=== PATIENT | female | born 1930 | race Caucasian/White ===

== ENCOUNTER 2017-05-31 15:39 | Observation (INO) | payer MEDICARE ==
[~2017-05-31] VITALS: Ht 148.6 cm; Wt 76.3 kg
[~2017-05-31 15:39] MED LIST: ACET500C6 PO; ASCOCRY2 PO; ASPI1TAB83 PO; CARV25TA2 PO; CRS/10 PO; CYAN1CAP3 PO; FERR325T5 PO; FOLITAB5 PO; FRS/40 PO; GABA-113 PO; GLIM4TAB2 PO; ISOS40TA12 PO; LACT3000; LEVO88TA3 PO; LISI40TA PO; LOPELIQ6; MAGN400T24 PO; METF500T PO; NITR0.4S UT; OMEGCAP2 PO; PANT1TAB48 PO; POTA-331 PO; SALS500T10 PO; SITA50TA PO; TRAM-10 PO; [UNRECOGNIZED DRUG - CODE] PO
[2017-05-31] MEDS ORDERED: ONDANSETRON INJ 2 MG/ML 2 ML VIAL IV STA (15:51)
[2017-05-31] MEDS ORDERED: NITROGLYCERIN 0.4 MG SL PER TAB CHARGE SL PRN ×2 (16:00→18:45)
--- NOTE | 2017-05-31 16:17 | EMERGENCY ROOM VISIT NOTE ---
History Report prepared by Harjinder: Rodrick Peters Under the Supervision of: Dr. Dandy Aleman M.D. First contact with patient: 15:42 Stated Complaint: CHEST DISCOMFORT History of Present Illness The patient is an 86 year old white female with a past medical history of DM, A- Fib, Arthritis, HTN who presents to the ED with a cc of constant, central chest pressure beginning 2.5 hours ago. The patient was given three shots of Novocain for a root canal. She did not have symptoms before this. Positive symptom relief with nitro and aspirin. Negative radiating pain, nausea, vomiting, history of smoking, drug use, alcohol use, history of OR, recent travel, abx use , abdominal pain, history of blood clots. The patient follows up with a physician in [place]. She is currently on pills and insulin for her DM, amiodarone, and Eliquis. Source of History: patient Onset: 2.5 hours ago Position: chest Quality: pressure Timing: constant Modifying Factors (Relieving): other (apirin and nitro) Associated Symptoms: No nausea, No vomiting, No abdominal pain Note: Denies: radiating pain, history of smoking, drug use, alcohol use, history of OR , recent travel, abx use Review of Systems See HPI for pertinent positives and negatives. A total of ten systems were reviewed and were otherwise negative. Past Medical & Surgical Medical Problems: (1) A-fib (2) Arthritis (3) Chest pain (4) Diabetes (5) HTN (hypertension) Family History Patient reports no known family medical history. Social History Smoking Status: Never Smoker Alcohol Use: none Drug Use: none Occupation Status: retired Current/Historical Medications Scheduled Acetaminophen (Tylenol), 1,000 MG PO HS Amiodarone Hcl (Cordarone), 100 MG PO DAILY Apixaban (Eliquis), 2.5 MG PO BID Ascorbic Acid (Vitamin C), 1 TAB PO BID Aspirin (Aspirin Chewable), 81 MG PO HS Cholecalciferol (Vitamin D3), 1 TAB PO DAILY Cyanocobalamin (Vitamin B-12), 1 TAB PO DAILY Ferrous Sulfate (Kp Ferrous Sulfate), 325 MG PO BID Folic Acid (Folvite), 1 MG PO DAILY Furosemide (Lasix), 40 MG PO QAM Gabapentin (Neurontin), 300 MG PO HS Glimepiride (Glimepiride), 4 MG PO QAM Insulin Glargine (Lantus Solostar), 16 UNITS SC QPM Isosorbide Mononitrate Ext Rel (Imdur Ext Rel), 30 TAB PO QAM Levothyroxine Sodium (Levothyroxine Sodium), 88 MCG PO DAILY Multiple Vitamins W/ Minerals (Preservision Areds), 1 CAP PO DAILY Omeprazole (Prilosec), 20 MG PO BID Sitagliptin Phosphate (Januvia), 100 MG PO QPM Scheduled PRN Lorazepam (Ativan), 0.5 MG PO BID PRN for Anxiety Allergies Coded Allergies: Onion (Unverified Allergy, Unknown, UNKNOWN, 05/31/17) Penicillins (Unverified Allergy, Unknown, UNKNOWN, 05/31/17) Lactose. (Unverified Adverse Reaction, Unknown, LACTOSE INTOLERANT, ) Physical Exam Vital Signs Date Time Temp Pulse Resp B/P (MAP) Pulse Ox O2 Delivery O2 Flow Rate FiO2 05/31/17 19:05 74 16 170/67 96 05/31/17 18:24 70 16 184/70 98 Room Air 05/31/17 17:01 72 16 187/92 97 Room Air 05/31/17 16:26 80 16 163/70 96 Room Air 05/31/17 16:18 70 16 175/81 97 Room Air 05/31/17 15:58 93 05/31/17 15:55 Room Air 05/31/17 15:54 97 Room Air 05/31/17 15:54 Room Air 05/31/17 15:48 85 16 213/109 99 Room Air Physical Exam GENERAL: Awake, alert, well-appearing, NAD HENT: Normocephalic, atraumatic. EYES: Normal conjunctiva. Sclera non-icteric. NECK: Supple. No nuchal rigidity. FROM. RESPIRATORY: CTAB, no rhonchi, wheezing, crackles CARDIAC: Systolic ejection murmur, RRR, no MRG ABDOMEN: Soft, NTND, BS+ MSK: Some reproducible, anterior chest wall TTP, 1+ LE edema NEURO: GCS 15, CN 2-12 intact, moves all 4s on command SKIN: No rash or jaundice noted. Medical Decision & Procedures ER Provider Diagnostic Interpretation: X-ray: Per my interpretation, radiologist review. CHEST ONE VIEW PORTABLE HISTORY: 86 years-old Female CHEST PAIN acute atypical chest pain COMPARISON: None available TECHNIQUE: Portable upright AP view of the chest FINDINGS: Cardiac silhouette is mildly enlarged. There is atherosclerosis of the aorta. No pneumothorax or pleural effusion. Linear subsegmental bibasilar opacities suggest atelectasis. Bones of the chest are grossly intact. IMPRESSION: 1. Mild cardiomegaly. 2. Linear subsegmental bibasilar opacities suggest atelectasis. The above report was generated using voice recognition software. It may contain grammatical, syntax or spelling errors. Electronically signed by: Shahriar Barber M.D. 05/31/2017 4:47 PM Dictated Date/Time: 05/31/2017 4:46 PM Laboratory Results 05/31/17 15:20 Red Blood Count 4.09, Mean Corpuscular Volume 91.9, Mean Corpuscular Hemoglobin 30.3, Mean Corpuscular Hemoglobin Concent 33.0, Mean Platelet Volume 9.4, Neutrophils (%) (Auto) 61.4, Lymphocytes (%) (Auto) 30.5, Monocytes (%) (Auto) 5.4, Eosinophils (%) (Auto) 2.0, Basophils (%) (Auto) 0.4, Neutrophils # (Auto) 5.71, Lymphocytes # (Auto) 2.84, Monocytes # (Auto) 0.50, Eosinophils # (Auto) 0.19, Basophils # (Auto) 0.04 05/31/17 15:20 05/31/17 17:08 Test 05/31/17 15:20 05/31/17 17:08 White Blood Count 9.31 K/uL (4.8-10.8) Red Blood Count 4.09 M/uL (4.2-5.4) Hemoglobin 12.4 g/dL (12.0-16.0) Hematocrit 37.6 % (37-47) Mean Corpuscular Volume 91.9 fL (80-100) Mean Corpuscular Hemoglobin 30.3 pg (25-34) Mean Corpuscular Hemoglobin Concent 33.0 g/dl (32-36) Platelet Count 285 K/uL (130-400) Mean Platelet Volume 9.4 fL (7.4-10.4) Neutrophils (%) (Auto) 61.4 % Lymphocytes (%) (Auto) 30.5 % Monocytes (%) (Auto) 5.4 % Eosinophils (%) (Auto) 2.0 % Basophils (%) (Auto) 0.4 % Neutrophils # (Auto) 5.71 K/uL (1.4-6.5) Lymphocytes # (Auto) 2.84 K/uL (1.2-3.4) Monocytes # (Auto) 0.50 K/uL (0.11-0.59) Eosinophils # (Auto) 0.19 K/uL (0-0.5) Basophils # (Auto) 0.04 K/uL (0-0.2) RDW Standard Deviation 45.9 fL (36.4-46.3) RDW Coefficient of Variation 13.9 % (11.5-14.5) Immature Granulocyte % (Auto) 0.3 % Immature Granulocyte # (Auto) 0.03 K/uL (0.00-0.02) Prothrombin Time 10.9 SECONDS (9.0-12.0) Prothromb Time International Ratio 1.0 (0.9-1.1) Activated Partial Thromboplast Time 31.2 SECONDS (21.0-31.0) Partial Thromboplastin Ratio 1.2 Anion Gap 10.0 mmol/L (3-11) Est Creatinine Clear Calc Drug Dose 20.4 ml/min Estimated GFR () 30.2 Estimated GFR (Non- 26.1 BUN/Creatinine Ratio 24.5 (10-20) Calcium Level 9.5 mg/dl (8.5-10.1) Total Bilirubin 0.3 mg/dl (0.2-1) Alanine Aminotransferase (ALT/SGPT) 25 U/L (12-78) Alkaline Phosphatase 60 U/L (45-117) Troponin I 0.028 ng/ml (0-0.045) Pro-B-Type Natriuretic Peptide 530 pg/ml (0-1800) Total Protein 8.2 gm/dl (6.4-8.2) Albumin 3.7 gm/dl (3.4-5.0) Lipase 304 U/L (73-393) Magnesium Level 1.9 mg/dl (1.8-2.4) Direct Bilirubin mg/dl (0-0.2) Aspartate Amino Transf (AST/SGOT) 18 U/L (15-37) Chemistry Specimen Hemolysis Laboratory results reviewed by me Medications Administered Medications (Trade) Dose Ordered Sig/Frank Route Start Time Stop Time Status Last Admin Dose Admin Nitroglycerin (Nitrostat Tab) 0.4 mg Q5M PRN SL 05/31/17 16:00 06/30/17 15:59 05/31/17 16:18 0.4 MG ECG Indication: chest pain Rate (beats per minute): 82 Rhythm: normal sinus Findings: T-wave inversion (AVL), other (normal interval, normal axis, T-Wave flattening in lead I) Comparison ECG Date: no prior available ED Course 1543: The patient was evaluated in room C10. A complete history and physical exam was performed. 1739: Upon reexamination, the patient was feeling better. I discussed the test results and treatment plan with her. The patient will be evaluated for further management. 1746: I discussed the patient's case with Dr. Joaquin, [facility] Hospitalist. The patient will be evaluated for further management. Medical Decision The patient is an 86 year old white female with a past medical history of DM, A- Fib, Arthritis, HTN who presents to the ED with a cc of constant, central chest pressure beginning 2.5 hours ago. Etiologies such as cardiac ischemia, aortic dissection, pulmonary embolism, pneumonia, pneumothorax, musculoskeletal, infections, pericarditis, myocarditis, esophageal rupture, gastrointestinal, as well as others were entertained. Patient was seen and evaluated the bedside. Patient was undergoing a procedure today which she received several shots of Novocain prior to route canal which when she exerts chest pain. Patient described the pain as chest pressure. Patient does have a fair amount of medical problems including hypertension and hyperlipidemia. Patient does have a history of A. fib and is on amiodarone and [place]. Patient did have blood work, EKG, chest x-ray completed. Patient's troponin was not undetectable but not elevated. Patient was 30 given nitroglycerin and aspirin route. Patient did state the chest pain was pressure- like did improve with the nitroglycerin. Patient was hypertensive here. Patient did receive an additional nitroglycerin. Patient's chest pain improved and then upon reassessment and resolved. Patient's blood pressure also improved from 210 systolic to 160. I did discuss the patient with the hospitalist given the patient's risk factors with an EKG did show T-wave inversions in 1 and aVL that she would benefit from further cardiac workup observation and treatment. Patient was admitted. Medication Reconcilliation Current Medication List: was personally reviewed by me Blood Pressure Screening Patient's blood pressure: Elevated blood pressure Monitored by hospitalist. Consults Time Called: 1740 Consulting Physician: Dr. Joaquin, [facility] Hospitalist Returned Call: 1746 I discussed the patient's case with Dr. Joaquin, [facility] Hospitalist. The patient will be evaluated for further management. Impression Primary Impression: Atypical chest pain Scribe Attestation The scribe's documentation has been prepared under my direction and personally reviewed by me in its entirety. I confirm that the note above accurately reflects all work, treatment, procedures, and medical decision making performed by me. Departure Information Dispostion Being Evaluated By Hospitalist Referrals Justin Steen M.D. (PCP)
[2017-05-31 16:23] LABS: BASO % 0.4 %; BASO ABS # 0.04 K/uL (0-0.2); COMPLETE YES; HEMATOCRIT 37.6 % (37-47); IG% 0.3 %; LYMPH % 30.5 %; LYMPH ABS # 2.84 K/uL (1.2-3.4); MEAN CELL VOLUME 91.9 fL (80-100); MEAN CORPUSCULAR HEMOGLOBIN 30.3 pg (25-34); MEAN PLATELET VOLUME 9.4 fL (7.4-10.4); MONO % 5.4 %; NEUT % 61.4 %; PLATELET COUNT 285 K/uL (130-400); RED BLOOD COUNT 4.09 M/uL (4.2-5.4); WHITE BLOOD COUNT 9.31 K/uL (4.8-10.8)
[2017-05-31 16:34] LABS: PARTIAL THROMBOPLASTIN RATIO 1.2; PROTHROMBIN TIME (PATIENT) 10.9 SECONDS (9.0-12.0)
--- NOTE | 2017-05-31 16:48 | DIAGNOSTIC IMAGING REPORT ---
CHEST ONE VIEW PORTABLE HISTORY: 86 years-old Female CHEST PAIN acute atypical chest pain COMPARISON: None available TECHNIQUE: Portable upright AP view of the chest FINDINGS: Cardiac silhouette is mildly enlarged. There is atherosclerosis of the aorta. No pneumothorax or pleural effusion. Linear subsegmental bibasilar opacities suggest atelectasis. Bones of the chest are grossly intact. IMPRESSION: 1. Mild cardiomegaly. 2. Linear subsegmental bibasilar opacities suggest atelectasis. The above report was generated using voice recognition software. It may contain grammatical, syntax or spelling errors. Electronically signed by: Shahriar Barber M.D. 05/31/2017 4:47 PM Dictated Date/Time: 05/31/2017 4:46 PM
[2017-05-31] MEDS ORDERED: SITA100T3 PO (16:55)
[2017-05-31] MEDS ORDERED: FOLI1TAB7 PO (16:55)
[2017-05-31] MEDS ORDERED: GLIM4TAB2 PO (16:55)
[2017-05-31] MEDS ORDERED: ASPCH81X PO (16:55)
[2017-05-31] MEDS ORDERED: ISOS30TA35 PO (16:55)
[2017-05-31] MEDS ORDERED: GABA-113 PO (16:55)
[2017-05-31] MEDS ORDERED: PRLSR20 PO (16:55)
[2017-05-31] MEDS ORDERED: INSDGIPEN SC (16:55)
[2017-05-31] MEDS ORDERED: MULTCAP33 PO (16:55)
[2017-05-31] MEDS ORDERED: FRS/40 PO (16:55)
[2017-05-31] MEDS ORDERED: FERR1TAB13 PO (16:55)
[2017-05-31] MEDS ORDERED: ASCA500 PO (16:55)
[2017-05-31] MEDS ORDERED: LEVO88TA3 PO (16:55)
[2017-05-31] MEDS ORDERED: APIX1TAB PO (16:55)
[2017-05-31] MEDS ORDERED: CHOL1000 PO (16:55)
[2017-05-31] MEDS ORDERED: ACET-1256 PO (16:55)
[2017-05-31] MEDS ORDERED: LORA-741 PO (16:55)
[2017-05-31] MEDS ORDERED: AMIO200T4 PO (16:55)
[2017-05-31] MEDS ORDERED: CYAN100T PO (16:55)
[2017-05-31 17:01] LABS: ALKALINE PHOSPHATASE 60 U/L (45-117); ALT/SGPT 25 U/L (12-78); BLOOD UREA NITROGEN 43 mg/dl (7-18); BUN/CREATININE RATIO 24.5 (10-20); CALCIUM 9.5 mg/dl (8.5-10.1); CARBON DIOXIDE 25 mmol/L (21-32); CHLORIDE 102 mmol/L (98-107); CREATININE 1.74 mg/dl (0.60-1.20); GLUCOSE 211 mg/dl (70-99); SODIUM 137 mmol/L (136-145)
[2017-05-31 18:10] LABS: AST/SGOT 18 U/L (15-37); MAGNESIUM 1.9 mg/dl (1.8-2.4); POTASSIUM 4.2 mmol/L (3.5-5.1)
--- NOTE | 2017-05-31 18:21 | History and Physical ---
History & Physical Date & Time of Service: May 31, 2017 at 18:10 Chief Complaint: Chest Discomfort Primary Care Physician: Justin Steen M.D. History of Present Illness At the dentist, after third shot of novacaine, began to feel chest pain substernally with no radiation. The pain persisted for 4 hours until she received nitro in the ED. No nausea, no sob. She has had chest pain in the past with her A.fib but this seemed more severe. She did feel her heart beating hard at the time but did not feel any palpitations. No lightheadedness, dizziness or blurred vision. No recent travel. She is from [place] and her acrylic fabricator is in [place]. She has a history of hypothyroidism, a.fib with Eliquis, htn, dm. She had a stress test a month ago which was normal. Heart catheterization x8 a few years ago. She has one stent and one vessel is 40% blocked Past Medical/Surgical History Medical Problems: (1) A-fib Status: Chronic (2) Arthritis Status: Chronic (3) Diabetes Status: Chronic (4) HTN (hypertension) Status: Chronic Family History Patient reports no known family medical history. Social History Smoking Status: Former Smoker (quit at age 35) Smokeless Tobacco Use: No Alcohol Use: none Drug Use: none Marital Status: Housing status: lives alone Occupational Status: retired Allergies Coded Allergies: Onion (Unverified Allergy, Unknown, UNKNOWN, 05/31/17) Penicillins (Unverified Allergy, Unknown, UNKNOWN, 05/31/17) Lactose. (Unverified Adverse Reaction, Unknown, LACTOSE INTOLERANT, ) Home Medications Scheduled Acetaminophen (Tylenol), 1,000 MG PO HS Amiodarone Hcl (Cordarone), 100 MG PO DAILY Apixaban (Eliquis), 2.5 MG PO BID Ascorbic Acid (Vitamin C), 1 TAB PO BID Aspirin (Aspirin Chewable), 81 MG PO HS Cholecalciferol (Vitamin D3), 1 TAB PO DAILY Cyanocobalamin (Vitamin B-12), 1 TAB PO DAILY Ferrous Sulfate (Kp Ferrous Sulfate), 325 MG PO BID Folic Acid (Folvite), 1 MG PO DAILY Furosemide (Lasix), 40 MG PO QAM Gabapentin (Neurontin), 300 MG PO HS Glimepiride (Glimepiride), 4 MG PO QAM Insulin Glargine (Lantus Solostar), 16 UNITS SC QPM Isosorbide Mononitrate Ext Rel (Imdur Ext Rel), 30 TAB PO QAM Levothyroxine Sodium (Levothyroxine Sodium), 88 MCG PO DAILY Multiple Vitamins W/ Minerals (Preservision Areds), 1 CAP PO DAILY Omeprazole (Prilosec), 20 MG PO BID Sitagliptin Phosphate (Januvia), 100 MG PO QPM Scheduled PRN Lorazepam (Ativan), 0.5 MG PO BID PRN for Anxiety Review of Systems Constitutional: No fever, No chills Respiratory: No cough, No sputum, No shortness of breath Cardiovascular: + chest pain Abdomen: No pain, No nausea, No vomiting, No diarrhea, No constipation Genitourinary - Female: No dysuria Physical Exam Vital Signs Date Time Temp Pulse Resp B/P (MAP) Pulse Ox O2 Delivery O2 Flow Rate FiO2 05/31/17 17:01 72 16 187/92 97 Room Air 05/31/17 16:26 80 16 163/70 96 Room Air 05/31/17 16:18 70 16 175/81 97 Room Air 05/31/17 15:58 93 05/31/17 15:55 Room Air 05/31/17 15:54 97 Room Air 05/31/17 15:54 Room Air 05/31/17 15:48 85 16 213/109 99 Room Air General: no distress Eyes: normal inspection, PERLL Respiratory: chest non tender, clear to auscultation, normal breath sounds, no respiratory distress, no accessory muscle use Cardiac: regular rate and rhythm, no rub or gallop, III/ systolic murmur, no edema, no jvd GI/: active bowel sounds, no abd pain or tenderness, soft, non distended Extremities: normal range of motion, normal strength, non tender Neuro/Psych: alert and oriented x 3, normal mood and affect Skin: normal color, dry Diagnostics Laboratory Results Results Past 24 Hours Test 05/31/17 15:20 05/31/17 17:08 Range/Units White Blood Count 9.31 4.8-10.8 K/uL Red Blood Count 4.09 4.2-5.4 M/uL Hemoglobin 12.4 12.0-16.0 g/dL Hematocrit 37.6 37-47 % Mean Corpuscular Volume 91.9 80-100 fL Mean Corpuscular Hemoglobin 30.3 25-34 pg Mean Corpuscular Hemoglobin Concent 33.0 32-36 g/dl Platelet Count 285 130-400 K/uL Mean Platelet Volume 9.4 7.4-10.4 fL Neutrophils (%) (Auto) 61.4 % Lymphocytes (%) (Auto) 30.5 % Monocytes (%) (Auto) 5.4 % Eosinophils (%) (Auto) 2.0 % Basophils (%) (Auto) 0.4 % Neutrophils # (Auto) 5.71 1.4-6.5 K/uL Lymphocytes # (Auto) 2.84 1.2-3.4 K/uL Monocytes # (Auto) 0.50 0.11-0.59 K/uL Eosinophils # (Auto) 0.19 0-0.5 K/uL Basophils # (Auto) 0.04 0-0.2 K/uL RDW Standard Deviation 45.9 36.4-46.3 fL RDW Coefficient of Variation 13.9 11.5-14.5 % Immature Granulocyte % (Auto) 0.3 % Immature Granulocyte # (Auto) 0.03 0.00-0.02 K/uL Prothrombin Time 10.9 9.0-12.0 SECONDS Prothromb Time International Ratio 1.0 0.9-1.1 Activated Partial Thromboplast Time 31.2 21.0-31.0 SECONDS Partial Thromboplastin Ratio 1.2 Sodium Level 137 136-145 mmol/L Potassium Level 4.2 3.5-5.1 mmol/L Chloride Level 102 98-107 mmol/L Carbon Dioxide Level 25 21-32 mmol/L Anion Gap 10.0 3-11 mmol/L Blood Urea Nitrogen 43 7-18 mg/dl Creatinine 1.74 0.60-1.20 mg/dl Est Creatinine Clear Calc Drug Dose 20.4 ml/min Estimated GFR () 30.2 Estimated GFR (Non- 26.1 BUN/Creatinine Ratio 24.5 10-20 Random Glucose 211 70-99 mg/dl Calcium Level 9.5 8.5-10.1 mg/dl Magnesium Level 1.9 1.8-2.4 mg/dl Total Bilirubin 0.3 0.2-1 mg/dl Direct Bilirubin 0-0.2 mg/dl Aspartate Amino Transf (AST/SGOT) 18 15-37 U/L Alanine Aminotransferase (ALT/SGPT) 25 12-78 U/L Alkaline Phosphatase 60 45-117 U/L Troponin I 0.028 0-0.045 ng/ml Pro-B-Type Natriuretic Peptide 530 0-1800 pg/ml Total Protein 8.2 6.4-8.2 gm/dl Albumin 3.7 3.4-5.0 gm/dl Lipase 304 73-393 U/L Chemistry Specimen Hemolysis Diagnostic Radiology CXR IMPRESSION: 1. Mild cardiomegaly. 2. Linear subsegmental bibasilar opacities suggest atelectasis. EKG Normal sinus rhythm Abnormal QRS-T angle, consider primary T wave abnormality Abnormal ECG No previous ECGs available Normal EKG Impression Assessment and Plan Ms. Mcdaniel presents today with complaints of substerna chest pain x4 hours beginning at the dentis after receiving three novocaine shots. Chest pain persisted until she received nitro. She is currently pain free. She is from [place] and her acrylic fabricator is in [place]. She has a history of hypothyroidism, a.fib with Eliquis, htn, dm. She had a stress test a month ago which was normal. Heart catheterization x8 last one a few years ago. She has one stent and one vessel is 40% blocked. Chest pain/CAD/A.fib - admit obs tele - trend troponins, first was marginally elevated at 0.024 - nitro for cp, ekg with cp - will hold off on stress testing as she recently had one - maintain patient and if she continues to be pain free overnight, schedule workup outpatient with her acrylic fabricator in [place] - continue Eliquis - BP improved - continue home antihypertensives and antidysrhythmics, hydralazine prn DM - continue home lantus, januvia, glymeperide - bsg ac&hs - diabetic diet Hypothyroidism - continue levothyroxine DVT prophylaxis - Eliquis DNR [employer]ISH[employer] Physician Supervision Note: I interviewed and examined the patient. Discussed with Fariba Tyler NP and agree with findings and plan as documented in the note. Any exceptions or clarifications are listed here: None Patient presents from her dentist with chest pain she is known coronary history however she follows with [place] acrylic fabricator and states she most recently had a stress test as was unremarkable in the ER she has no evidence of acute coronary syndrome however her initial troponin was mildly elevated at 0.2 subsequent to transfer the floor she developed atrial fibrillation RVR will be given metoprolol to help control this rate she has a history of atrial fib and she is on amiodarone and Eliquis of the present time Heart is irregularly irregular it was not tachycardic in the ER became tachycardic on the floor her lungs were clear Chest pain with abnormal troponin and now evidence of paroxysmal A. fib Perhaps the patient's chest pain or the dentist office was regulated related to her A. fib caused by anxiety the dentist we'll maintain her medications using bolus metoprolol which other control her rate if her troponin is not trend and she does not need acute intervention the patient wishes to follow-up in [place] for the remainder of her cardiac care Documented By: Norberto Joaquin Advanced Directives Existing Advance Directive: Yes Existing Living Will: Yes Existing Power of Inside Sales Executive: No (daughter Macy Conner and son Phong Mcdaniel) Resuscitation Status DO NOT RESUSCITATE VTE Prophylaxis Risk Level: Moderate
[2017-05-31] MEDS ORDERED: LORAZEPAM 0.5 MG TAB PO PRN (18:45)
[2017-05-31] MEDS ORDERED: ONDANSETRON INJ 2 MG/ML 2 ML VIAL IV PRN (18:45)
[2017-05-31] MEDS ORDERED: ACETAMINOPHEN 325 MG TAB PO PRN (18:45)
[2017-05-31] MEDS ORDERED: HydrALAZINE HCL 20 MG/ML VIAL IV. PRN (19:15)
[2017-05-31 19:58] VITALS: BP 197/77; PULSE 75; TEMP 36.6; O2SAT 96; Ht 148.6 cm; Wt 76.3 kg
[2017-05-31] MEDS ORDERED: IV FLUIDS COMPLETED PRN (20:00)
[2017-05-31] MEDS ORDERED: METOPROLOL TARTRATE 1 MG/ML VIAL ONE (20:29)
[2017-05-31] MEDS ORDERED: HydrALAZINE HCL 20 MG/ML VIAL IV PRN (20:30)
[2017-05-31] MEDS ORDERED: MAGNESIUM SULFATE 1GM / D5W 1 GM in PREMIXED IN D5W 100 ML IV ONE (20:30)
[2017-05-31] MEDS ORDERED: METOPROLOL TARTRATE 1 MG/ML VIAL IV PRN (20:30)
[2017-05-31 20:56] VITALS: BP 159/62; PULSE 66; O2SAT 95
[2017-05-31] MEDS: APIXABAN 2.5 MG TAB PO SCH (20:57)
[2017-05-31] MEDS ORDERED: GABAPENTIN 300 MG CAP PO SCH (21:00)
[2017-05-31] MEDS ORDERED: ASPIRIN 81 MG ECTAB PO SCH (21:00)
[2017-05-31] MEDS ORDERED: ASCORBIC ACID PO SCH (21:00)
[2017-05-31] MEDS ORDERED: INSULIN GLARGINE SOLOSTAR 100 UNITS/ML 3 ML PEN SC SCH (21:00)
[2017-05-31] MEDS ORDERED: SITAGLIPTIN 100 MG TAB PO SCH (21:00)
[2017-05-31] MEDS ORDERED: ACETAMINOPHEN 500 MG TAB PO SCH (21:00)
[2017-05-31] MEDS: PANTOprazole SOD 40 MG TAB PO SCH (22:10)
[2017-06-01] VITALS (7 sets, daily range): BP systolic 115–194; BP diastolic 54–71; PULSE 57–62; TEMP 36.4–36.7; O2SAT 96–97
[2017-06-01 03:48] LABS: HEMATOCRIT 34.7 % (37-47); MEAN CELL VOLUME 90.8 fL (80-100); MEAN CORPUSCULAR HEMOGLOBIN 30.4 pg (25-34); MEAN CORPUSCULAR HGB CONC 33.4 g/dl (32-36); MEAN PLATELET VOLUME 8.8 fL (7.4-10.4); PLATELET COUNT 245 K/uL (130-400); RED BLOOD COUNT 3.82 M/uL (4.2-5.4); WHITE BLOOD COUNT 7.26 K/uL (4.8-10.8)
[2017-06-01 04:11] LABS: BUN/CREATININE RATIO 23.8 (10-20); CREATININE 1.48 mg/dl (0.60-1.20); POTASSIUM 4.1 mmol/L (3.5-5.1)
[2017-06-01] MEDS ORDERED: LEVOTHYROXINE 88 MCG TAB PO SCH (06:00)
[2017-06-01] MEDS ORDERED: FERROUS SULFATE 325 MG TAB PO SCH (07:30)
[2017-06-01] MEDS: APIXABAN 2.5 MG TAB PO SCH (07:55)
[2017-06-01] MEDS: PANTOprazole SOD 40 MG TAB PO SCH (07:56)
[2017-06-01] MEDS ORDERED: FUROSEMIDE 40 MG TAB PO SCH (09:00)
[2017-06-01] MEDS ORDERED: AMIODARONE 200 MG TAB PO SCH (09:00)
[2017-06-01] MEDS ORDERED: NON-FORMULARY MEDICATION (Cholecalciferol (Vitamin D3) 1 TAB) PO SCH (09:00)
[2017-06-01] MEDS ORDERED: CEROVITE ADV FORMULA TAB PO SCH (09:00)
[2017-06-01] MEDS ORDERED: NON-FORMULARY MEDICATION (Cyanocobalamin (Vitamin B-12) 1 TAB) PO SCH (09:00)
[2017-06-01] MEDS ORDERED: GLIMEPIRIDE 2 MG TAB PO SCH (09:00)
[2017-06-01] MEDS ORDERED: ISOSORBIDE MONONITRATE 30 MG TABCR PO SCH ×3 (09:00)
--- NOTE | 2017-06-01 10:31 | Discharge Instructions ---
Discharge Instructions Date of Service Jun 01, 2017. Admission Reason for Admission: Chest Pain Discharge Discharge Diagnosis / Problem: Chest pain Discharge Goals Goal(s): Decrease discomfort, Improve function, Diagnostic testing, Therapeutic intervention Activity Recommendations Activity Limitations: resume your previous activity (as tolerated) . Instructions / Follow-Up Instructions / Follow-Up You were admitted to the hospital for overnight observation presenting with chest pain after receiving novocaine injections. You did develop atrial fibrillation with a rapid ventricular response while in the hospital, but this resolved after receiving a one-time dose of a medication called metoprolol ( Lopressor), and you returned to a normal sinus rhythm. One of your cardiac enzymes did become mildly elevated, but given your very recent normal stress test, this is unlikely due to an acute cardiac event. As your chest pain has resolved, you are now medically stable for discharge. Medications: *No changes have been made to your medications, please continue to take as prescribed. Follow up: *You will be scheduled to follow up with your primary care provider, Dr. Steen, as well as your document restorer, Dr. Seaman. Please seek medical attention if you experience fevers, chills, sweats, dizziness/lightheadedness, loss of consciousness, chest pain, shortness of breath, nausea, vomiting, numbness or tingling. Current Hospital Diet Patient's current hospital diet: Diabetes Type 2 Diet Discharge Diet Recommended Diet: AHA Diet (Heart Healthy), Diabetes Type 2 Diet Pending Studies Studies pending at discharge: no Medical Emergencies . Who to Call and When: Medical Emergencies: If at any time you feel your situation is an emergency, please call 911 immediately. . Non-Emergent Contact Non-Emergency issues call your: Primary Care Provider, [employer] Teacher . Past History Medical & Surgical History: (1) Chest pain . "Provider Documentation" section prepared by Haydee Timmons. . VTE Core Measure Inpt VTE Proph given/why not?: SCD's
--- NOTE | 2017-06-01 14:20 | Discharge Summary ---
Discharge Summary Date of Service Jun 01, 2017. (Haydee Timmons .KEYONNA) Discharge Summary Admission Date: May 31, 2017 at 18:42 Discharge Date: Jun 01, 2017 Discharge Disposition: Home Principal Diagnosis: Chest pain (Haydee Timmons PA-C) Medication Reconciliation Continued Medications: Acetaminophen (Tylenol) 500 Mg Tab 1000 MG PO HS, TAB Amiodarone Hcl (Cordarone) 200 Mg Tab 100 MG PO DAILY, TAB Apixaban (Eliquis) 2.5 Mg Tab 2.5 MG PO BID, TAB Ascorbic Acid (Vitamin C) Unknown Strength Tab 1 TAB PO BID Aspirin (Aspirin Chewable) 81 Mg Chew 81 MG PO HS, TAB Cholecalciferol (Vitamin D3) Unknown Strength Tab 1 TAB PO DAILY for 90 Days, TAB 3 Refills Cyanocobalamin (Vitamin B-12) Unknown Strength Tab 1 TAB PO DAILY, TAB Ferrous Sulfate (Kp Ferrous Sulfate) 325 Mg Tab 325 MG PO BID for 30 Days, #60 TAB 3 Refills Folic Acid (Folvite) 1 Mg Tab 1 MG PO DAILY, TAB Furosemide (Lasix) 40 Mg Tab 40 MG PO QAM, TAB Gabapentin (Neurontin) 300 Mg Cap 300 MG PO HS, CAP Glimepiride (Glimepiride) 4 Mg Tab 4 MG PO QAM for 90 Days, #90 TAB 3 Refills Insulin Glargine (Lantus Solostar) 100 Unit/Ml Inj 16 UNITS SC QPM, PEN Isosorbide Mononitrate Ext Rel (Imdur Ext Rel) 30 Mg Tabcr 30 TAB PO QAM, TAB Levothyroxine Sodium (Levothyroxine Sodium) 88 Mcg Tab 88 MCG PO DAILY for 90 Days, #90 TAB 3 Refills Lorazepam (Ativan) 0.5 Mg Tab 0.5 MG PO BID PRN for Anxiety, TAB Multiple Vitamins W/ Minerals (Preservision Areds) 1 Cap Cap 1 CAP PO DAILY Omeprazole (Prilosec) 20 Mg Capcr 20 MG PO BID, CAP Sitagliptin Phosphate (Januvia) 100 Mg Tab 100 MG PO QPM, TAB Discharge Exam Patient reports feeling well. She has not had any more chest pain. She denies any complaints. The patient states that she just had a normal stress echo last month. The patient denies fevers, chills, sweats, chest pain, palpitations, claudication, cough, wheezing, shortness of breath, nausea, vomiting, abdominal pain, dysuria, hematuria, urinary retention, paralysis, weakness, numbness and tingling. Review of Systems: Constitutional: No fever, No chills, No sweats Eyes: No worsening of vision, No eye pain, No diplopia ENT: No hearing loss, No nasal symptoms, No trouble swallowing Respiratory: No cough, No wheezing, No shortness of breath Cardiovascular: No chest pain, No claudication, No palpitations Abdomen: No pain, No nausea, No vomiting Musculoskeletal: No joint pain, No muscle pain, No calf pain Genitourinary - Female: No dysuria, No urinary retention, No hematuria Neurologic: No paralysis, No weakness, No numbness/tingling Integumentary: No rash, No itch, No color change Physical Exam: General Appearance: WD/WN, no apparent distress, + obese Eyes: normal inspection, PERRL, EOMI ENT: normal ENT inspection, hearing grossly normal, pharynx normal Neck: supple, no JVD, trachea midline Respiratory/Chest: lungs clear, normal breath sounds, no respiratory distress Cardiovascular: regular rate, rhythm, no gallop, no murmur Abdomen / GI: normal bowel sounds, non tender, soft Extremities: normal inspection, no calf tenderness, no pedal edema Neurologic/Psychiatric: alert, normal mood/affect, oriented x 3 Skin: normal color, warm/dry, no rash (Haydee Timmons ., PA-C) Hospital Course 86 y/o female with a history of a-fib on Eliquis, CAD s/p stent, HTN, DM II and hypothyroidism who presents with chest pain. She has a history of 8 heart caths , last one a few years ago. Known 40% occlusion in one vessel. Had normal stress echo 1 month ago. Chest pain developed prior to arrival after receiving 3 shots of novocaine at the dentist. CXR no acute disease. EKGs no ischemic changes Chest pain--resolved - Admit to telemetry for observation. No acute events overnight. Converted to SR around 2100, has remained in SR/sinus murray with HR 50s-60s - Troponin peaked at 0.426 then trended down. No more chest pain - Repeat EKG in am without ischemic changes - No more pain, troponin only mildly elevated. Recent negative stress echo. Will f/u with assembler arranger in [place] on Sunday CAD s/p stent, HTN--stable -Continue ASA, Imdur 30 mg PO qd, Lasix 40 mg PO qd A-fib--pt had been in a-fib with RVR upon arrival to floor on 05/31. Received Lopressor 5 mg IV x 1 and then converted to NSR. Has remained sinus since -Continue amiodarone 100 mg PO qd and Eliquis 2.5 mg PO BID DM II--stable -Continue Lantus 16 units SC hs, glimepiride 4 mg PO qd and Januvia 100 mg PO hs -Check BSGs q ac and qhs Neuropathy -Continue gabapentin 300 mg PO hs Hypothyroidism -Continue Synthroid 88 mcg PO qd DVT prophylaxis -Eliquis Code Status -Level V, DO NOT RESUSCITATE Dispo -D/c to home. Pt has f/u appt with cardiology scheduled Monday 06/04 Total Time Spent: Greater than 30 minutes This includes examination of the patient, discharge planning, medication reconciliation, and communication with other providers. (Haydee Timmons ., KEYONNA) Discharge Instructions Please refer to the electronic Patient Visit Report (Discharge Instructions) for additional information. (Haydee Timmons ., GEOVANIC) Additional Copies To ADINA HWANG M.D.; Justin Steen M.D. Reviewed: Pt Seen/Exam by Me (Chastity Nix, ) History Pt has had no return of chest pain. She feels at her usual. Has been tolerating PO without issue. Pt denies fever, abd pain, n/v/c/d, LE pain or swelling. Pt states her dentist told her that rarely novocaine can get in the blood stream on injection and cause issues. She is not certain she will have her root canal done in the future given this experience. No SOB. Agree with HPI/ROS as noted. (Chastity Nix, ) General Appearance: WD/WN, no apparent distress Respiratory: normal breath sounds, no respiratory distress Cardiovascular: regular rate, rhythm, no edema Gastrointestinal: non tender, soft Extremities: non-tender, no pedal edema Neurologic/Psychiatric: alert, normal mood/affect, oriented x 3 Skin Characteristics: normal color, warm/dry (Chastity Nix, DO) Assessment/Plan Agree with plan as outlined above Chest pain, possibly a reaction to novocaine Trop with very slight elevation on admission and max of 0.426 Had a neg stress test last month that was WNL Follows with cardiology in [place], appt set up by CM for Sunday for f/u (Chastity Nix, DO)
== END 2017-06-01 13:15 | disposition home or self-care (01) ==
LOC: EDBD 15:39 → C.EDC 15:42 → C.2E 18:42 → ENRESERV 18:50
PROVIDERS: ADMIT Internal Medicine; ATTEND Family Medicine
DX: R07.89 Other chest pain (principal); I48.91 Unspecified atrial fibrillation; E11.9 Type 2 diabetes mellitus without complications; I10 Essential (primary) hypertension; E03.9 Hypothyroidism, unspecified; I25.10 Atherosclerotic heart disease of native coronary artery without angina pectoris; I25.2 Old myocardial infarction; Z79.899 Other long term (current) drug therapy; Z88.0 Allergy status to penicillin; Z95.1 Presence of aortocoronary bypass graft; Z87.891 Personal history of nicotine dependence; Z79.4 Long term (current) use of insulin; Z79.82 Long term (current) use of aspirin